=== PATIENT | male | born 1950 | race Caucasian/White ===

== ENCOUNTER → 2018-03-13 | Outpatient (CLI) | payer OTHER ==
[~2018-03-13] VITALS: Ht 180.3 cm; Wt 94.3 kg
[~2018-03-13] MED LIST: ADULT LOW DOSE81 M1 PO; ASPIRIN EC325 MG PO; CARDIZEM CD240 MG PO; CARTIA XT240 MG PO; COQ-10100 MG PO; COZAAR50 MG PO; CRESTOR40 MG PO; LEXAPRO10 MG PO; SINGULAIR10 MG PO; ZETIA10 MG PO
== END | disposition home or self-care (01) ==
LOC: AMB 12:40
DX: K83.9 Disease of biliary tract, unspecified (principal); J30.9 Allergic rhinitis, unspecified; K21.9 Gastro-esophageal reflux disease without esophagitis; E78.5 Hyperlipidemia, unspecified; I10 Essential (primary) hypertension; G43.909 Migraine, unspecified, not intractable, without status migrainosus; E66.3 Overweight; Z68.28 Body mass index [BMI] 28.0-28.9, adult; R73.03 Prediabetes; Z87.891 Personal history of nicotine dependence; Z79.82 Long term (current) use of aspirin
CPT/HCPCS: 88305; 93005; C1726; J3010